=== PATIENT | female | born 1985 | race Caucasian/White ===

== ENCOUNTER 2018-12-29 20:27 | Emergency (ER) | payer MEDICAID ==
[~2018-12-29 20:27] MED LIST: ARIP5TAB8 PO
== END 2018-12-29 21:15 | disposition left against medical advice (07) ==
LOC: EMS 20:28
DX: N93.9 Abnormal uterine and vaginal bleeding, unspecified (principal); Z53.21 Procedure and treatment not carried out due to patient leaving prior to being seen by health care provider

== ENCOUNTER 2020-02-22 02:03 | Emergency (ER) | payer MEDICAID ==
[~2020-02-22] VITALS: Ht 175.3 cm; Wt 79.5 kg
[2020-02-22 04:25] VITALS: BP 118/66
[2020-02-22] MEDS ORDERED: ACETAMINOPHEN 325 MG TABLET PO ONE (04:30)
[2020-02-22] MEDS ORDERED: IBUPROFEN 400 MG TABLET PO ONE (04:30)
== END 2020-02-22 05:10 | disposition home or self-care (01) ==
LOC: EMS 02:04
DX: M25.561 Pain in right knee (principal); M25.562 Pain in left knee; Z59.0 Homelessness

== ENCOUNTER 2024-04-04 16:34 | Emergency (ER) | payer MEDICAID, OTHER ==
[~2024-04-04] VITALS: Ht 175.3 cm; Wt 86.4 kg
[~2024-04-04 16:34] MED LIST changes: +ARIP5TAB37 PO; -ARIP5TAB8 PO
[2024-04-04 16:41] VITALS: BP 123/75; PULSE 80; RESP 18; TEMP 97.9
[2024-04-04] MEDS ORDERED: HYDR-4062 PO (16:51)
[2024-04-04] MEDS: HYDROCODONE/ACETAMINOPHEN 5-325 MG TABLET PO ONE (19:44)
[2024-04-04] MEDS: LIDOCAINE 5% TRANSDERMAL PATCH TD ONE (19:44)
== END 2024-04-04 21:05 | disposition home or self-care (01) ==
LOC: EMS 18:17
DX: M25.552 Pain in left hip (principal); M25.562 Pain in left knee; Z88.5 Allergy status to narcotic agent; Z88.6 Allergy status to analgesic agent
CPT/HCPCS: 73503; 99284

== ENCOUNTER 2024-06-02 22:41 | Emergency (ER) | payer OTHER ==
[~2024-06-02] VITALS: Ht 175.3 cm; Wt 113.6 kg
[~2024-06-02 22:41] MED LIST changes: -ARIP5TAB37 PO; +HYDR-4062 PO
[2024-06-02 22:46] VITALS: TEMP 97.8
[2024-06-03 00:05] VITALS: BP 115/76; PULSE 100; RESP 14
[2024-06-03] MEDS: SODIUM CHLORIDE 0.9% 1,000 ML IV ONE (00:31)
[2024-06-03 00:43] LABS: ALCOHOL, BLOOD (SERUM) 291 mg/dL (0-10)
[2024-06-03 00:52] LABS: ANION GAP 15 mmol/L (8-16); CALCIUM, TOTAL 8.7 mg/dL (8.8-10.5); CARBON DIOXIDE 22 mmol/L (22-29); CHLORIDE 104 mmol/L (98-107); CREATININE 0.94 mg/dL (0.60-1.30); GLOMERULAR FILTR. RATE CALC > 60 mL/min (>60); GLUCOSE,RANDOM 106 mg/dL (70-110); POTASSIUM 3.6 mmol/L (3.5-5.1); SODIUM SERUM 141 mmol/L (136-145); UREA NITROGEN, BLOOD 13 mg/dL (7-18)
[2024-06-03 01:03] LABS: HCG,QUANTITATIVE < 1 mIU/mL (0-6)
[2024-06-03 01:10] LABS: BASOPHILS % (AUTO) 0.6 % (0.0-2.0); EOSINOPHILS % (AUTO) 0.6 % (1.0-6.0); HEMATOCRIT 39.5 % (36-46); HEMOGLOBIN 13.1 g/dL (12.0-16.0); LYMPHOCYTES # (AUTO) 3.7 K/uL (1.0-4.8); LYMPHOCYTES % (AUTO) 44.9 % (22.0-44.0); MEAN CORPUSCULAR HEMOGLOBIN 27.6 pg (26.0-34.0); MEAN CORPUSCULAR HGB CONC 33.2 G/dL (31.0-37.0); MEAN CORPUSCULAR VOLUME 83 fL (80-100); MONOCYTES # (AUTO) 0.5 K/uL (0.1-1.0); MONOCYTES % (AUTO) 5.7 % (2.0-9.0); NEUTROPHILS % (AUTO) 48.2 % (40.0-70.0); PLATELET COUNT (AUTO) 305 K/uL (150-450); RED BLOOD CELL COUNT(AUTO) 4.73 MIL/uL (4.00-5.20); RED CELL DISTRIBUTION WIDTH 15.8 % (11.5-14.5); WHITE BLOOD COUNT (AUTO) 8.3 K/uL (4.5-11.0)
== END 2024-06-03 05:16 | disposition home or self-care (01) ==
LOC: EMS 22:41
DX: F10.129 Alcohol abuse with intoxication, unspecified (principal); Z88.6 Allergy status to analgesic agent; Z88.8 Allergy status to other drugs, medicaments and biological substances; Y90.6 Blood alcohol level of 120-199 mg/100 ml
CPT/HCPCS: 99283; 80048; 84702; 85025; 36415; 96360; G0480; J7030